=== PATIENT | male | born 1965 | race Caucasian/White ===

== ENCOUNTER → 2024-08-09 07:16 | Outpatient (REF) | payer OTHER, SELFPAY | LOC: HWRAD 07:16 | PROVIDERS: ATTENDING PHYSICIAN Nurse Practitioner Family | DX: R10.84 Generalized abdominal pain (principal); M54.6 Pain in thoracic spine | CPT/HCPCS: 71046; 72072; 76700 ==

== ENCOUNTER 2024-09-03 06:26 | Day surgery (SDC) | payer OTHER, SELFPAY | END 2024-09-03 10:57 | disposition home or self-care (01) | LOC: GI 06:26 | PROVIDERS: ATTENDING PHYSICIAN Internal Medicine | DX: Z12.11 Encounter for screening for malignant neoplasm of colon (principal); Z83.710 Family history of adenomatous and serrated polyps | CPT/HCPCS: G0105 ==

== ENCOUNTER → 2024-09-09 13:51 | Outpatient (REF) | payer OTHER, SELFPAY | LOC: RCS 13:51 | PROVIDERS: ATTENDING PHYSICIAN Internal Medicine Cardiovascular Disease; FAMILY PHYSICIAN Internal Medicine | DX: Z95.3 Presence of xenogenic heart valve (principal); Q23.0 Congenital stenosis of aortic valve | CPT/HCPCS: 93306 ==